=== PATIENT | female | born 1985 | race Caucasian/White ===

== ENCOUNTER 2019-02-18 17:51 | Emergency (ER) | payer SELFPAY ==
[2019-02-18 18:09] VITALS: BP 129/71; PULSE 78; TEMP 98.2; BMI 29.2
--- NOTE | 2019-02-18 18:13 | PDOC ---
History of Present Illness - General Chief Complaint: Pain Stated Complaint: BREAST PAIN Time Seen by Provider: 02/18/19 18:12 History Source: Patient Past History - Past Medical History Allergies/Adverse Reactions: Allergies Allergy/AdvReac Type Severity Reaction Status Date / Time Penicillins Allergy Verified 02/18/19 17:58 Home Medications: Ambulatory Orders NK [No Known Home Medication] 02/18/19 COPD: No - Suicide/Smoking/Psychosocial Hx Smoking History: Never smoked Review of Systems - Review of Systems Constitutional: No: Chills, Fever, Unexplained wgt Loss *Physical Exam - Vital Signs Last Vital Signs Temp Pulse Resp BP Pulse Ox 98.2 F 78 16 129/71 100 02/18/19 17:59 02/18/19 17:59 02/18/19 17:59 02/18/19 17:59 02/18/19 17:59 - Physical Exam General Appearance: Yes: Appropriately Dressed. No: Apparent Distress HEENT: positive: Normal Voice Neck: positive: Supple Respiratory/Chest: positive: Other (+minimal ttp diffusely to L breast w/ symmetric breasts w/ no nipple changes, mass and no cervical/axillary lymphnodes palpated). negative: Respiratory Distress Integumentary: positive: Dry, Warm Neurologic: positive: Fully Oriented, Alert, Normal Mood/Affect Medical Decision Making - Medical Decision Making 02/18/19 18:24 33 yo F, ?pre-DM, takes OCPs, here w/ unilateral breast pain. Pt reports L breast pain x 1 month, located to outer and upper quadrants of breast, described as throbbing in nature, 6/10 and mostly constant. Denies swelling, mass, skin changes, nipple discharge, unexplained weight loss, f/c. No h/o same. Not currently breast feeding. Last preg 3 years ago. Menses finished yesterday. No personal or fmhx of breast ca. Pt states she was evaluated by both her MEDIA ACCOUNT EXECUTIVE and PMD for pain last week. States she was told by her MEDIA ACCOUNT EXECUTIVE that pain possibly due to OCPs and was switched to a different OCP 2 weeks ago but pain continues. Takes motrin sometimes which helps relieve pain. States she presents today to have an US See exam Unilateral breast pain x 1 month On OCPs Not currently breast feeding No infectious sxs No unexplained weight loss No recent trauma +minimal ttp diffusely to L breast without mass, skin/nipple changes or lymphadenopathy No need for emergent US in ED as discussed with pt -pain control in ED -dc w/ f/u with Dr Juarez of surgery (also specializes in breast conditions) next week for further evaluation and possible US *DC/Admit/Observation/Transfer Diagnosis at time of Disposition: Breast pain, left - Discharge Dispostion Disposition: HOME Condition at time of disposition: Good - Referrals Referrals: Benja Juarez MD [Staff Physician] - - Patient Instructions Printed Discharge Instructions: Mastalgia Additional Instructions: La causa de barnett dolor en los senos no est tristin en manjeet momento. Existen varias posibilidades, entre las que se incluyen el dolor en los senos debido al control de la natalidad, las hormonas y el dolor en los senos debido a los quistes en los senos, etc. Tambin necesitar ginny ecografa de barnett seno para descartar otras causas, incluido el cncer. Por favor clement un seguimiento con el Dr. Juarez para ginny evaluacin adicional. Si el Dr. Juarez no puede verlo debido a problemas de seguro, contine consultando a barnett gineclogo o PMD para que le realicen ginny ecografa. [place] motrin o tylenol para el dolor cuando sea necesario mientras tanto Print Language: JAPANESE - Post Discharge Activity
[2019-02-18] MEDS ORDERED: IBUPROFEN 400 MG TABLET (FP) PO ONE ×2 (18:34→18:49)
== END 2019-02-18 19:00 | disposition home or self-care (01) ==
LOC: JER 17:51
DX: N64.4 Mastodynia (principal)
CPT/HCPCS: 99282-25

== ENCOUNTER 2019-05-12 20:10 | Emergency (ER) | payer OTHER ==
[2019-05-12 20:22] VITALS: TEMP 98.1; BMI 39.0
[2019-05-12] MEDS ORDERED: DEXAMETHASONE SOD PHOSPHATE 10 MG/1 ML VIAL IVPUSH ONE (21:12)
[2019-05-12] MEDS ORDERED: KETOROLAC TROMETHAMINE 30 MG/1 ML VIAL IVPUSH ONE (21:12)
--- NOTE | 2019-05-12 21:35 | PDOC ---
History of Present Illness - General Chief Complaint: Headache Stated Complaint: HEAD PAIN Time Seen by Provider: 05/12/19 20:55 History Source: Patient Exam Limitations: No Limitations - History of Present Illness Initial Comments: 05/12/19 21:31 Patient is a 33 year old female with h/o sinusitis, c/o headache x 2 days. Patient states her pain is in the post auricular area radiating to the back of the neck and frontal associated with dizziness, subjective fever, chills, fatigue. States sleeping a lot. No recent illness with colds. Took advil today without no releif. States she feels better after sleeping but still has pain behind the ear. PMD: Dr. Maximiliano King PMHX; as above PSOCHX: neg etoh, cig, drug ALL: PCN hives, GENERAL/CONSTITUTIONAL: No fever or chills. No weakness. No weight change. HEAD, EYES, EARS, NOSE AND THROAT: No change in vision. No ear pain or discharge. No sore throat. CARDIOVASCULAR: No chest pain or shortness of breath. RESPIRATORY: No cough, wheezing, or hemoptysis. GASTROINTESTINAL: No nausea, vomiting, diarrhea or constipation. No rectal bleeding. GENITOURINARY: No dysuria, frequency, or change in urination. MUSCULOSKELETAL: No joint or muscle swelling or pain. No neck or back pain. SKIN AND BREASTS: No rash or easy bruising. NEUROLOGIC: No headache, vertigo, loss of consciousness, or loss of sensation. PSYCHIATRIC: No depression or anxiety. ENDOCRINE: No increased thirst. No abnormal weight change. HEMATOLOGIC/LYMPHATIC: No anemia, easy bleeding, or history of blood clots. ALLERGIC/IMMUNOLOGIC: No hives or skin allergy. No latex allergy. GENERAL: The patient is awake, alert, and fully oriented, in no acute distress. HEAD: Normal with no signs of trauma. EYES: Pupils equal, round and reactive to light, extraocular movements intact, sclera anicteric, conjunctiva clear. ENT: Ears normal, nares patent, oropharynx clear without exudates. Moist mucous membranes. (+) tendernss b/p mastoid, occiput, NECK: Normal range of motion, supple without lymphadenopathy, JVD, or masses. LUNGS: Breath sounds equal, clear to auscultation bilaterally. No wheezes, and no crackles. HEART: Regular rate and rhythm, normal S1 and S2 without murmur, rub. ABDOMEN: Soft, nontender, normoactive bowel sounds. No guarding, no rebound. No masses. EXTREMITIES: Normal range of motion, no edema. No clubbing or cyanosis. No cords, erythema, or tenderness. NEUROLOGICAL: Cranial nerves II through XII grossly intact. Normal speech, normal gait. PSYCH: Normal mood, normal affect. SKIN: Warm, Dry, normal turgor, no rashes or lesions noted. Past History - Past Medical History Allergies/Adverse Reactions: Allergies Allergy/AdvReac Type Severity Reaction Status Date / Time Penicillins Allergy Verified 02/18/19 17:58 Home Medications: Ambulatory Orders NK [No Known Home Medication] 02/18/19 COPD: No Diabetes: Yes (NIDDM) - Suicide/Smoking/Psychosocial Hx Smoking History: Never smoked *Physical Exam - Vital Signs Last Vital Signs Temp Pulse Resp BP Pulse Ox 98.1 F 97 H 20 124/88 99 05/12/19 20:20 05/12/19 20:20 05/12/19 20:20 05/12/19 20:20 05/12/19 20:20 ED Treatment Course - LABORATORY CBC & Chemistry Diagram: 05/12/19 21:45 05/12/19 22:00 Medical Decision Making - Medical Decision Making 05/12/19 21:31 Patient is a 33 year old female with h/o sinusitis, c/o headache x 2 days. Patient states her pain is in the post auricular area radiating to the back of the neck and frontal associated with dizziness, subjective fever, chills, fatigue. States sleeping a lot. No recent illness with colds. Took advil today without no releif. States she feels better after sleeping but still has pain behind the ear. Patient symproms consistent with sinusitis will treat for headache, benadryl, toradol, decadon 05/13/19 00:19 Patient Full Name: ARUN ALFREDO Patient MRN: [id number] Accession No: [id number] Patient : 1985 Reason for Exam: R/O MASTOIDITIS Referring Physician: COURTNEY GONCALVES Patient Name: SEAN DIAS THIS IS A PRELIMINARY REPORT FROM [facility] DATE OF SERVICE: 2019-05-12 23:11:46 IMAGES: [id number] EXAM: CT HEAD WITHOUT CONTRAST and CT TEMPORAL BONE WITHOUT CONTRAST TEMPORAL BONES Patent external auditory canals. Normal bilateral tympanic membranes, middle ear cavities, ossicular chains, epitympanic recesses, and mastoid air cells. Normal bilateral cochleas, internal auditory canals, petrous apices, and semicircular canals. HEAD No acute brain parenchymal abnormality. No hemorrhage, mass or acute territorial infarct. Minimal mucoperisoetal thickening paranasal sinuses. Visualized mastoid air cells clear. One or more of the following dose reduction techniques were used: automated exposure control, adjustment of the mA and/or kV according to patient size, use of iterative reconstructive technique. THIS DOCUMENT HAS BEEN ELECTRONICALLY SIGNED Cherise Vazquez M.D. 05/13/2019 00:03 MARTINA Shrestha Please call [facility] [phone] ([phone]) with questions. INTERPRETING RADIOLOGIST: Cherise Vazquez MD Electronically Signed: May 13, 2019 12:05AM EDT 05/13/19 01:02 Paitent fe *DC/Admit/Observation/Transfer Diagnosis at time of Disposition: Sinus headache Sinusitis Qualifiers: Sinusitis location: unspecified location Chronicity: acute Recurrence: not specified as recurrent Qualified Code(s): J01.90 - Acute sinusitis, unspecified - Discharge Dispostion Disposition: HOME Condition at time of disposition: Stable - Referrals - Patient Instructions Printed Discharge Instructions: DI for Sinusitis Additional Instructions: Your Discharge Instructions: You must call primary care physician within 24 hours to arrange follow-up. Return to the Emergency Department with any new, persistent or worsening symptoms, for fever, chills, SOB, dizziness or any other concerning changes that may occur. - Post Discharge Activity
[2019-05-12] MEDS ORDERED: DEXAMETHASONE SOD PHOSPHATE 10 MG/1 ML VIAL ONE (22:02)
[2019-05-12] MEDS ORDERED: KETOROLAC TROMETHAMINE 30 MG/1 ML VIAL ONE (22:03)
[2019-05-12 22:06] LABS: BASO % 0.6 % (0-2.0); EOS % 1.7 % (0-4.5); HEMATOCRIT 37.7 % (32.4-45.2); HEMOGLOBIN 12.8 GM/dL (10.7-15.3); LYMPH % 34.3 % (8-40); MCH 28.3 pg (25.7-33.7); MCHC 33.9 g/dl (32.0-36.0); MEAN CELL VOLUME 83.5 fl (80-96); MEAN PLT VOLUME 8.8 fl (7.5-11.1); MONO % 10.6 % (3.8-10.2); NEUT % 52.8 % (42.8-82.8); PLATELET COUNT 177 K/MM3 (134-434); RBC 4.51 M/mm3 (3.60-5.2); RDW 12.5 % (11.6-15.6)
[2019-05-12 22:23] LABS: CALCIUM 8.4 mg/dL (8.5-10.1); CREATININE 0.6 mg/dL (0.55-1.3); POTASSIUM 3.5 mmol/L (3.5-5.1)
[2019-05-12 22:51] LABS: PLATELET ESTIMATE NORMAL
[2019-05-13 01:32] VITALS: BP 119/75; PULSE 87
== END 2019-05-13 01:32 | disposition home or self-care (01) ==
LOC: JER 20:10
PROC: 3E033GC Introduction of Other Therapeutic Substance into Peripheral Vein, Percutaneous Approach (ICD-10-PCS; principal; 2019-05-12)
PROC: 3E0333Z Introduction of Anti-inflammatory into Peripheral Vein, Percutaneous Approach (ICD-10-PCS; 2019-05-12)
PROC: 3E0333Z Introduction of Anti-inflammatory into Peripheral Vein, Percutaneous Approach (ICD-10-PCS; 2019-05-12)
DX: J01.90 Acute sinusitis, unspecified (principal)
CPT/HCPCS: 36415; 70450-TC; 80048; 84703; 85025; 96374; 96375; 99282-25; J1100

== ENCOUNTER 2023-09-19 21:20 | Inpatient (IN) | payer OTHER ==
[2023-09-19 22:39] VITALS: BMI 39.6
[2023-09-19] MEDS ORDERED: DINOPROSTONE 10 MG VAGINAL SUPPOSITORY VG ONE (23:00)
[2023-09-19] MEDS ORDERED: AMPICILLIN - 2 GM in SODIUM CHLORIDE 100 ML IVPB ONE (23:08)
[2023-09-19 23:37] LABS: ALBUMIN 2.2 g/dl (3.4-5.0); CALCIUM 8.5 mg/dL (8.5-10.1)
[2023-09-19 23:40] LABS: CREATININE 0.6 mg/dL (0.55-1.3)
[2023-09-19 23:42] LABS: BILIRUBIN,TOTAL 0.6 mg/dL (0.2-1); TOT PROT 6.5 g/dl (6.4-8.2)
[2023-09-19] MEDS: ELECTROLYTE-148 SOLN 1,000 ML IV SCH (23:47)
[2023-09-20] MEDS ORDERED: CLINDAMYCIN 900 MG PREMIX IVPB 900 MG/50 ML BAG IVPB ONE (00:14)
[2023-09-20] MEDS: CLINDAMYCIN 900 MG PREMIX IVPB 900 MG/50 ML BAG IVPB SCH ×2 (00:15→10:44)
[2023-09-20 00:18] LABS: HIV INTERPRETATION NEGATIVE (NEGATIVE)
[2023-09-20] MEDS ORDERED: FENTANYL CITRATE/PF 50 MCG/ML VIAL ONE (07:11)
[2023-09-20] MEDS ORDERED: morphine SULFATE/PF 1 MG/2 ML (2cc Syringe - QUVA) ONE (07:11)
[2023-09-20] MEDS ORDERED: ONDANSETRON 4 MG/2 ML VIAL ONE (07:17)
[2023-09-20] MEDS ORDERED: OXYTOCIN 10 UNITS/ML VIAL ONE ×2 (07:17→09:17)
[2023-09-20] MEDS ORDERED: KETOROLAC TROMETHAMINE 30 MG/1 ML VIAL ONE (07:17)
[2023-09-20] MEDS ORDERED: CITRIC ACID/SODIUM CITRATE 30 ML UNIT-DOSE CUP PO ONE (07:17)
[2023-09-20] MEDS ORDERED: DEXAMETHASONE SOD PHOSPHATE 4 MG/1 ML VIAL ONE (07:17)
[2023-09-20] MEDS ORDERED: ceFAZolin SODIUM 1 GM VIAL ONE (07:17)
[2023-09-20] MEDS ORDERED: METOCLOPRAMIDE HCL INJECTION 10 MG/2 ML VIAL ONE (07:17)
[2023-09-20] MEDS ORDERED: SODIUM CHLORIDE 0.9% P/F 10 ML VIAL IJ ONE (07:17)
[2023-09-20] MEDS: metFORMIN HCL 500 MG TABLET (FP) PO SCH ×2 (07:21→17:27)
[2023-09-20] MEDS ORDERED: IBUPROFEN 800 MG/8 ML IJ IVPB PRN (09:07)
[2023-09-20] MEDS ORDERED: ACETAMINOPHEN 325 MG TABLET (FP) PO PRN (09:07)
[2023-09-20] MEDS ORDERED: ONDANSETRON 4 MG/2 ML VIAL IVPB PRN (09:07)
[2023-09-20] MEDS ORDERED: ACETAMINOPHEN 1000 MG/100 ML BAG IVPB PRN (09:07)
[2023-09-20] MEDS ORDERED: OXYTOCIN 20 UNITS in 0.9% NS 20 UNIT/1,000 ML INFUS.BAG IV SCH (09:15)
[2023-09-20] MEDS ORDERED: ONDANSETRON 4 MG/2 ML VIAL IVPUSH PRN (09:26)
[2023-09-20] MEDS ORDERED: OXYTOCIN 20 UNITS in 0.9% NS 20 UNIT/1,000 ML INFUS.BAG IV ONE (09:40)
[2023-09-20] MEDS ORDERED: CEFAZOLIN 2 GM in DEXTROSE 5%-WATER - 50 ML IVPB SCH (10:00)
[2023-09-20] MEDS ORDERED: ACETAMINOPHEN INJECTION 100 ML IVPB ONE (10:07)
[2023-09-20] MEDS: PRENATAL VITAMINS W/ FOLIC ACID TABLET (FP) PO SCH (10:45)
[2023-09-20] MEDS: URSODIOL 300 MG CAPSULE PO SCH ×2 (10:47→22:12)
[2023-09-20] MEDS: INSULIN SLIDING SCALE (NOVOLOG) 1 VIAL SQ SCH ×2 (16:47→22:04)
[2023-09-20] MEDS: IBUPROFEN 600 MG TABLET (FP) PO PRN ×2 (16:56→20:37)
[2023-09-20] MEDS: CEFAZOLIN 2 GM in DEXTROSE 5%-WATER - 50 ML IVPB SCH (16:58)
[2023-09-20] MEDS: SIMETHICONE 80 MG TAB.CHEW (FP) PO PRN (20:37)
[2023-09-20] MEDS: SENNOSIDES/DOCUSATE COMBO (SENNA PLUS) TABLET (UD) PO SCH (22:05)
[2023-09-20] MEDS: AMPICILLIN - 1 GM in SODIUM CHLORIDE 100 ML IVPB SCH (22:16)
[2023-09-21] MEDS: CEFAZOLIN 2 GM in DEXTROSE 5%-WATER - 50 ML IVPB SCH (00:23)
[2023-09-21] MEDS: AMPICILLIN - 1 GM in SODIUM CHLORIDE 100 ML IVPB SCH (00:59)
[2023-09-21] MEDS: ELECTROLYTE-148 SOLN 1,000 ML IV SCH (04:41)
[2023-09-21] MEDS: metFORMIN HCL 500 MG TABLET (FP) PO SCH ×2 (06:17→17:04)
[2023-09-21] MEDS: INSULIN SLIDING SCALE (NOVOLOG) 1 VIAL SQ SCH ×4 (06:17→22:40)
[2023-09-21] MEDS: IBUPROFEN 600 MG TABLET (FP) PO PRN ×3 (08:54→20:44)
[2023-09-21] MEDS: SIMETHICONE 80 MG TAB.CHEW (FP) PO PRN ×2 (08:54→14:39)
[2023-09-21] MEDS ORDERED: BISACODYL 10 MG SUPP.RECT RC PRN (09:07)
[2023-09-21 09:08] LABS: BASO % 0.3 % (0-2.0); EOS % 0.4 % (0-4.5); HEMATOCRIT 32.4 % (32.4-45.2); HEMOGLOBIN 10.5 GM/dL (10.7-15.3); LYMPH % 15.3 % (8-40); MCH 29.3 pg (25.7-33.7); MCHC 32.3 g/dl (32.0-36.0); MEAN CELL VOLUME 90.9 fl (80-96); MEAN PLT VOLUME 9.5 fl (7.5-11.1); MONO % 3.7 % (3.8-10.2); NEUT % 80.3 % (42.8-82.8); PLATELET COUNT 182 10^3/uL (134-434); RBC 3.57 M/mm3 (3.60-5.2); RDW 16.6 % (11.6-15.6); WHITE BLOOD COUNT 10.7 K/mm3 (4.0-10.0)
[2023-09-21] MEDS: PRENATAL VITAMINS W/ FOLIC ACID TABLET (FP) PO SCH (09:49)
[2023-09-21] MEDS: URSODIOL 300 MG CAPSULE PO SCH (09:49)
[2023-09-21 10:32] VITALS: RESP 18
[2023-09-21] MEDS ORDERED: ACETAMINOPHEN 325 MG TABLET (FP) PO PRN (14:21)
[2023-09-21] MEDS ORDERED: oxyCODONE HCL 5 MG TABLET PO PRN (14:21)
[2023-09-21] MEDS: oxyCODONE HCL 5 MG TABLET PO PRN ×2 (14:39→22:45)
[2023-09-21] MEDS: POLYETHYLENE GLYCOL (HEALTHYLAX) 3350 17 GM PACKET PO SCH ×2 (15:06→22:42)
[2023-09-21] MEDS: ACETAMINOPHEN 500 MG TABLET (FP) PO PRN (17:42)
[2023-09-21] MEDS: SENNOSIDES/DOCUSATE COMBO (SENNA PLUS) TABLET (UD) PO SCH (22:41)
[2023-09-22] MEDS: IBUPROFEN 600 MG TABLET (FP) PO PRN ×4 (02:48→20:34)
[2023-09-22] MEDS: SIMETHICONE 80 MG TAB.CHEW (FP) PO PRN ×4 (02:48→20:34)
[2023-09-22] MEDS: metFORMIN HCL 500 MG TABLET (FP) PO SCH ×2 (06:21→17:01)
[2023-09-22] MEDS: INSULIN SLIDING SCALE (NOVOLOG) 1 VIAL SQ SCH ×4 (06:26→21:15)
[2023-09-22] MEDS: PRENATAL VITAMINS W/ FOLIC ACID TABLET (FP) PO SCH (09:00)
[2023-09-22] MEDS: POLYETHYLENE GLYCOL (HEALTHYLAX) 3350 17 GM PACKET PO SCH ×2 (09:00→21:06)
[2023-09-22] MEDS: SENNOSIDES/DOCUSATE COMBO (SENNA PLUS) TABLET (UD) PO SCH (21:06)
[2023-09-23] MEDS: IBUPROFEN 600 MG TABLET (FP) PO PRN ×4 (02:54→23:34)
[2023-09-23] MEDS: SIMETHICONE 80 MG TAB.CHEW (FP) PO PRN ×2 (02:54→23:37)
[2023-09-23] MEDS: metFORMIN HCL 500 MG TABLET (FP) PO SCH ×2 (06:42→16:46)
[2023-09-23] MEDS: INSULIN SLIDING SCALE (NOVOLOG) 1 VIAL SQ SCH ×4 (06:52→23:45)
[2023-09-23] MEDS: POLYETHYLENE GLYCOL (HEALTHYLAX) 3350 17 GM PACKET PO SCH ×2 (09:00→23:35)
[2023-09-23] MEDS: PRENATAL VITAMINS W/ FOLIC ACID TABLET (FP) PO SCH (09:00)
[2023-09-23] MEDS: ACETAMINOPHEN 500 MG TABLET (FP) PO PRN (12:42)
[2023-09-23] MEDS: SENNOSIDES/DOCUSATE COMBO (SENNA PLUS) TABLET (UD) PO SCH (23:37)
[2023-09-24] MEDS: SILVER SULFADIAZINE 1% TOP CREAM 50 GM JAR TP SCH ×3 (05:13→22:00)
[2023-09-24] MEDS: metFORMIN HCL 500 MG TABLET (FP) PO SCH (06:27)
[2023-09-24] MEDS: ACETAMINOPHEN 500 MG TABLET (FP) PO PRN ×2 (06:30→19:25)
[2023-09-24] MEDS: INSULIN SLIDING SCALE (NOVOLOG) 1 VIAL SQ SCH ×4 (07:01→21:22)
[2023-09-24] MEDS: PRENATAL VITAMINS W/ FOLIC ACID TABLET (FP) PO SCH (10:40)
[2023-09-24] MEDS: IBUPROFEN 600 MG TABLET (FP) PO PRN ×2 (10:40→16:49)
[2023-09-24] MEDS: SIMETHICONE 80 MG TAB.CHEW (FP) PO PRN (10:40)
[2023-09-24] MEDS: POLYETHYLENE GLYCOL (HEALTHYLAX) 3350 17 GM PACKET PO SCH ×2 (10:41→21:21)
[2023-09-24] MEDS: SENNOSIDES/DOCUSATE COMBO (SENNA PLUS) TABLET (UD) PO SCH (21:21)
[2023-09-24] MEDS: HYDROCORTISONE 1% TOPICAL CREAM 30 GM TUBE TP PRN (21:49)
[2023-09-25] MEDS: IBUPROFEN 600 MG TABLET (FP) PO PRN ×3 (05:19→16:20)
[2023-09-25] MEDS: SIMETHICONE 80 MG TAB.CHEW (FP) PO PRN ×3 (05:19→19:32)
[2023-09-25] MEDS: ACETAMINOPHEN 500 MG TABLET (FP) PO PRN ×3 (06:13→19:32)
[2023-09-25] MEDS: INSULIN SLIDING SCALE (NOVOLOG) 1 VIAL SQ SCH ×3 (06:19→16:25)
[2023-09-25 08:02] VITALS: TEMP 98.1
[2023-09-25] MEDS: PRENATAL VITAMINS W/ FOLIC ACID TABLET (FP) PO SCH (09:29)
[2023-09-25] MEDS: POLYETHYLENE GLYCOL (HEALTHYLAX) 3350 17 GM PACKET PO SCH (09:32)
[2023-09-25] MEDS: SILVER SULFADIAZINE 1% TOP CREAM 50 GM JAR TP SCH (10:04)
[2023-09-25] MEDS: HYDROCORTISONE 1% TOPICAL CREAM 30 GM TUBE TP PRN (11:56)
[2023-09-25 18:08] VITALS: BP 130/84; PULSE 91
== END 2023-09-25 21:00 | disposition home or self-care (01) | DRG 540 ==
LOC: JLDR 21:20 → J3W 09-20 11:15
PROVIDERS: ADMIT Specialist; ATTEND Specialist
PROC: 10D00Z1 Extraction of Products of Conception, Low, Open Approach (ICD-10-PCS; principal; 2023-09-20)
DX: O62.1 Secondary uterine inertia (principal); O76 Abnormality in fetal heart rate and rhythm complicating labor and delivery; O24.425 Gestational diabetes mellitus in childbirth, controlled by oral hypoglycemic drugs; O26.643 Intrahepatic cholestasis of pregnancy, third trimester; O99.824 Streptococcus B carrier state complicating childbirth; Z3A.37 37 weeks gestation of pregnancy; Z37.0 Single live birth; O90.89 Other complications of the puerperium, not elsewhere classified; E11.65 Type 2 diabetes mellitus with hyperglycemia; O16.5 Unspecified maternal hypertension, complicating the puerperium; Z79.84 Long term (current) use of oral hypoglycemic drugs
CPT/HCPCS: 36415; 80053; 82962; 85025; 87389; 88307-TC; 94010

== ENCOUNTER 2023-10-01 18:30 | Emergency (ER) | payer OTHER ==
[2023-10-01 18:56] VITALS: BMI 37.5
[2023-10-01] MEDS ORDERED: diphenhydrAMINE HCL 25 MG CAPSULE (FP) PO ONE ×2 (20:24→21:16)
[2023-10-01] MEDS ORDERED: DOXYCYCLINE INJECTION 100 MG in DEXTROSE 5%-WATER - 150 ML IVPB ONE (20:25)
[2023-10-01] MEDS ORDERED: SODIUM CHLORIDE 0.9% 500 ML INFUS.BAG IV ONE (20:25)
[2023-10-01 20:59] LABS: BASO % 0.8 % (0-2.0); EOS % 1.7 % (0-4.5); HEMATOCRIT 31.7 % (32.4-45.2); HEMOGLOBIN 10.2 GM/dL (10.7-15.3); MCH 28.7 pg (25.7-33.7); MCHC 32.3 g/dl (32.0-36.0); MEAN PLT VOLUME 7.5 fl (7.5-11.1); MONO % 4.2 % (3.8-10.2); NEUT % 78.3 % (42.8-82.8); PLATELET COUNT 515 10^3/uL (134-434); RBC 3.56 M/mm3 (3.60-5.2); RDW 16.1 % (11.6-15.6); WHITE BLOOD COUNT 12.4 K/mm3 (4.0-10.0)
[2023-10-01 21:18] LABS: POTASSIUM 4.2 mmol/L (3.5-5.1)
[2023-10-01 21:21] LABS: ALBUMIN 2.3 g/dl (3.4-5.0); CALCIUM 8.9 mg/dL (8.5-10.1)
[2023-10-01] MEDS ORDERED: morphine CARPU-JECT 4 MG/1 ML DISP.SYRIN IVPUSH ONE (21:21)
[2023-10-01 21:22] LABS: BLOOD UREA NITROGEN 10.6 mg/dL (7-18)
[2023-10-01 21:24] LABS: CREATININE 0.5 mg/dL (0.55-1.3)
[2023-10-01] MEDS ORDERED: morphine SULFATE 4 MG/ML VIAL ONE (21:24)
[2023-10-01 21:26] LABS: BILIRUBIN,TOTAL 0.3 mg/dL (0.2-1); TOT PROT 6.8 g/dl (6.4-8.2)
[2023-10-01 21:46] LABS: INR 1.07 (0.83-1.09); PROTHROMBIN TIME (PATIENT) 12.4 SEC (9.7-13.0)
[2023-10-01 21:49] LABS: ACTIVATED PTT 31.4 SECONDS (25.2-36.5)
[2023-10-01] MEDS ORDERED: DOXYCYCLINE HYCLATE 100 MG VIAL ONE (22:13)
[2023-10-01 23:01] LABS: EPI CELLS 15 /uL (0-25.1); HYALINE CASTS 1 /uL (0-3.1); URINE APPEARANCE CLOUDY; URINE BACTERIA 206 /uL (0-1359); URINE BILIRUBIN NEGATIVE (NEGATIVE); URINE COLOR YELLOW; URINE GLUCOSE (UA) NEGATIVE (NEGATIVE); URINE KETONE NEGATIVE (NEGATIVE); URINE LEUK ESTERASE 1+ (NEGATIVE); URINE NITRITE NEGATIVE (NEGATIVE); URINE PROTEIN TRACE (NEGATIVE); URINE RBC 37 /uL (0-23.9); URINE UROBILINOGEN 0.2 mg/dL (0.2-1.0); URINE WBC 205 /uL (0-25.8)
[2023-10-01] MEDS ORDERED: NITROFURANTOIN MONOHYD/M-CRYST 100 MG CAPSULE PO ONE (23:08)
[2023-10-01] MEDS ORDERED: NITROFURANTOIN MACROCRYSTAL 50 MG CAPSULE (FP) ONE (23:38)
[2023-10-02 00:53] VITALS: BP 118/79; PULSE 86; RESP 17; TEMP 97.6
== END 2023-10-02 00:53 | disposition home or self-care (01) ==
LOC: JER 18:30
PROC: 3E03329 Introduction of Other Anti-infective into Peripheral Vein, Percutaneous Approach (ICD-10-PCS; principal; 2023-10-01)
PROC: 3E03329 Introduction of Other Anti-infective into Peripheral Vein, Percutaneous Approach (ICD-10-PCS; 2023-10-01)
PROC: 3E033GC Introduction of Other Therapeutic Substance into Peripheral Vein, Percutaneous Approach (ICD-10-PCS; 2023-10-01)
DX: O86.00 Infection of obstetric surgical wound, unspecified (principal); G89.18 Other acute postprocedural pain; Z48.00 Encounter for change or removal of nonsurgical wound dressing; Z20.822 Contact with and (suspected) exposure to COVID-19
CPT/HCPCS: 0241U-QW; 36415; 80053; 81003; 85025; 85610; 85730; 86850; 86900; 86901; 87040; 87070; 87077; 87086; 87186; 87205; 99284-25

== ENCOUNTER 2023-10-02 21:01 | Emergency (ER) | payer OTHER ==
[2023-10-02 21:06] VITALS: BP 120/81; PULSE 100; RESP 20; TEMP 98.3; BMI 37.7
[2023-10-02] MEDS ORDERED: DOXYCYCLINE HYCLATE 100 MG CAPSULE PO ONE ×2 (22:52→23:00)
== END 2023-10-02 23:13 | disposition home or self-care (01) ==
LOC: JER 21:01
DX: Z48.01 Encounter for change or removal of surgical wound dressing (principal)
CPT/HCPCS: 99283-25

== ENCOUNTER 2024-01-30 20:29 | Emergency (ER) | payer OTHER ==
[2024-01-30 20:37] VITALS: TEMP 98.1; BMI 32.9
[2024-01-30] MEDS ORDERED: ACETAMINOPHEN INJECTION 100 ML IVPB ONE (22:09)
[2024-01-30] MEDS: ACETAMINOPHEN 1000 MG/100 ML BAG IVPB ONE (22:48)
[2024-01-30 22:50] LABS: BASO % 0.5 % (0-2.0); EOS % 0.5 % (0-4.5); HEMATOCRIT 38.1 % (32.4-45.2); HEMOGLOBIN 12.7 GM/dL (10.7-15.3); LYMPH % 27.2 % (8-40); MCH 27.2 pg (25.7-33.7); MCHC 33.3 g/dl (32.0-36.0); MEAN CELL VOLUME 81.7 fl (80-96); MEAN PLT VOLUME 7.6 fl (7.5-11.1); MONO % 3.2 % (3.8-10.2); NEUT % 68.6 % (42.8-82.8); PLATELET COUNT 240 10^3/uL (134-434); RBC 4.66 M/mm3 (3.60-5.2); RDW 14.3 % (11.6-15.6)
[2024-01-30 23:00] LABS: INR 0.96 (0.83-1.09); PROTHROMBIN TIME (PATIENT) 11.1 SEC (9.7-13.0)
[2024-01-30 23:14] LABS: POTASSIUM 3.8 mmol/L (3.5-5.1)
[2024-01-30 23:18] LABS: ALBUMIN 3.7 g/dl (3.4-5.0); BLOOD UREA NITROGEN 11.4 mg/dL (7-18); CALCIUM 9.4 mg/dL (8.5-10.1); MAGNESIUM 2.2 mg/dL (1.8-2.4)
[2024-01-30 23:20] LABS: CREATININE 0.6 mg/dL (0.55-1.3)
[2024-01-30 23:23] LABS: BILIRUBIN,TOTAL 0.3 mg/dL (0.2-1); TOT PROT 7.7 g/dl (6.4-8.2)
[2024-01-30 23:51] VITALS: BP 117/79; PULSE 77; RESP 16
[2024-01-31 15:16] LABS: N-TERMINAL BNP 59.2 pg/ml (5-125)
== END 2024-01-30 23:59 | disposition home or self-care (01) ==
LOC: JER 20:29
PROC: 3E030NZ Introduction of Analgesics, Hypnotics, Sedatives into Peripheral Vein, Open Approach (ICD-10-PCS; principal; 2024-01-30)
DX: R06.02 Shortness of breath (principal); R20.0 Anesthesia of skin; R07.9 Chest pain, unspecified; R11.0 Nausea; R42 Dizziness and giddiness; R61 Generalized hyperhidrosis; Z20.822 Contact with and (suspected) exposure to COVID-19
CPT/HCPCS: 0241U-QW; 36415; 71046-TC-FY; 80053; 83735; 83880; 84484; 84703; 85025; 85379; 85610; 93005; 93010; 96374; 99285-25; J0131